=== PATIENT | male | born 1950 | race Caucasian/White ===

== ENCOUNTER 2018-12-04 11:43 | Day surgery (SDC) | payer MEDICARE, OTHER ==
[~2018-12-04] VITALS: Ht 177.8 cm; Wt 87.9 kg
[~2018-12-04 11:43] MED LIST: ASCO500C2 PO; ASPI-496 PO; CHOL200074 PO; LORA10TA75 PO; LUTE20CA2 PO; NIAC500T10 PO; OMEG1CAP24 PO; PRAV20TA2 PO; SELE200T10 PO; UBID100C41 PO
[2018-12-04] MEDS ORDERED: LACTATED RINGERS 1,000 ML IV SCH (11:52)
[2018-12-04] MEDS ORDERED: ACETAMINOPHEN 500 MG TABLET PO ONE (12:00)
[2018-12-04] MEDS ORDERED: ONDANSETRON ODT 8 MG PO ONE (12:00)
[2018-12-04] MEDS ORDERED: GABAPENTIN 300 MG CAPSULE PO ONE (12:00)
[2018-12-04 12:10] VITALS: BP 149/82
[2018-12-04] MEDS ORDERED: BUPIVACAINE/PF 0.25% ONE (13:44)
[2018-12-04] MEDS ORDERED: FENTANYL PF 250 MCG/5ML ONE (14:04)
[2018-12-04] MEDS ORDERED: MIDAZOLAM 1 MG/ML, 2ML ONE (14:04)
[2018-12-04] MEDS ORDERED: GLYCOPYRROLATE 0.2MG/1ML, 5ML ONE (14:24)
[2018-12-04] MEDS ORDERED: METOPROLOL 1 MG/ML, 5ML IV PRN (15:00)
[2018-12-04] MEDS ORDERED: PROMETHAZINE 25 MG/ML, 1ML IV PRN (15:00)
[2018-12-04] MEDS ORDERED: DIAZEPAM 5 MG/ML, 2ML IVPush PRN (15:00)
[2018-12-04] MEDS ORDERED: HYDROmorphone 2 MG/ML, 1ML IVPush PRN (15:00)
[2018-12-04] MEDS ORDERED: ALBUTEROL/IPRATROPIUM 2.5MG/0.5MG, 3 ML NPPB PRN (15:00)
[2018-12-04] MEDS ORDERED: OXYcodone 5 MG/5 ML ORAL.SOL UDC PO PRN (15:00)
[2018-12-04] MEDS ORDERED: hydrALAzine 20 MG/ML, 1ML IV PRN (15:00)
[2018-12-04] MEDS ORDERED: ONDANSETRON 2MG/ML, 2ML IV PRN (15:00)
[2018-12-04] MEDS ORDERED: MIDAZOLAM 1 MG/ML, 2ML IV PRN (15:00)
[2018-12-04] MEDS ORDERED: FENTANYL PF 100 MCG/2ML IV PRN (15:00)
[2018-12-04] MEDS ORDERED: NEOSPORIN OINT, 15GM ONE (15:23)
[2018-12-04] MEDS ORDERED: KETOROLAC 30 MG/1 ML ONE (15:26)
[2018-12-04] MEDS ORDERED: CEFAZOLIN 1,000 MG ONE (15:26)
[2018-12-04] MEDS ORDERED: PROPOFOL 10 MG/ML, 20ML ONE (15:26)
[2018-12-04] MEDS ORDERED: DEXAMETHASONE 4 MG/ML, 1ML ONE (15:26)
[2018-12-04] MEDS ORDERED: OXYcodone 5 MG/5 ML ORAL.SOL UDC ONE (15:46)
[2018-12-04] MEDS ORDERED: FENTANYL PF 100 MCG/2ML ONE (15:46)
== END 2018-12-04 18:15 | disposition home or self-care (01) ==
LOC: OUT 11:43
PROVIDERS: ATTEND Urology
DX: N43.42 Spermatocele of epididymis, multiple (principal); N43.3 Hydrocele, unspecified; Z72.89 Other problems related to lifestyle; E78.00 Pure hypercholesterolemia, unspecified; Z98.890 Other specified postprocedural states
CPT/HCPCS: 54840; 88304; J0690; J1100; J1885; J2250; J2704; J3010; J3490; J7120; Q0162

== ENCOUNTER → 2018-12-21 | Outpatient (CLI) | payer MEDICARE, OTHER ==
[~2018-12-21] MED LIST changes: +REGADENOSON 0.4 MG/5 ML SYRINGE ONE
[2018-12-21 15:59] LABS: BASOPHILS # (AUTO) 0.04 x10^3/uL (0-0.1); BASOPHILS % (AUTO) 1 % (0-1); EOSINOPHILS % (AUTO) 2 % (1-7); LYMPHOCYTES # (AUTO) 2.02 x10^3/uL (1-3.4); LYMPHOCYTES % (AUTO) 31 % (22-44); MD NO; MEAN CORPUSCULAR HEMOGLOBIN 30.7 pg (27.5-34.5); MEAN CORPUSCULAR HGB CONC 33.3 g/dL (33.2-36.2); MEAN CORPUSCULAR VOLUME 92.1 fL (81-97); MEAN PLATELET VOLUME 7.5 fL (7.4-10.4); MONOCYTES # (AUTO) 0.45 x10^3/uL (0.2-0.8); MONOCYTES % (AUTO) 7 % (2-9); NEUTROPHILS # (AUTO) 4.01 x10^3/uL (1.8-6.8); NEUTROPHILS % (AUTO) 61 % (42-75); PLATELET COUNT 275 x10^3/uL (130-400); RED BLOOD COUNT 4.94 x10^6/uL (4.38-5.82); RED CELL DISTRIBUTION WIDTH 13.7 % (9.4-14.8)
[2018-12-21 16:10] LABS: ALBUMIN 3.6 g/dL (3.4-5.0); ANION GAP 7 mmol/L (5-15); CALCIUM 8.5 mg/dL (8.5-10.1); CHLORIDE 107 mmol/L (98-107)
[2018-12-21 16:38] LABS: ALANINE AMINOTRANSFERASE 24 U/L (12-78); ALKALINE PHOSPHATASE 79 U/L (45-117); BILIRUBIN,TOTAL 0.9 mg/dL (0.2-1.0); CHOL/HDL RATIO 3.3; CHOLESTEROL, TOTAL 208 mg/dL (140-239); CREATININE 1.02 mg/dL (0.7-1.3); HDL CHOL % 31 % (26-37); HDL CHOLESTEROL (DIRECT) 64 mg/dL (40-60); LDL CHOLESTEROL,CALCULATED 124 mg/dL (54-169); LDL/HDL RATIO 1.9 (0.5-3.0); T4 (THYROXINE) 10.4 mcg/dL (4.5-12.1); TOTAL PROTEIN 7.2 g/dL (6.4-8.2); TRIGLYCERIDES 101 mg/dL (50-200); VLDL CHOLESTEROL 20 mg/dL (0-25)
== END | disposition home or self-care (01) ==
LOC: CFH 12:04
PROVIDERS: ATTEND Internal Medicine Cardiovascular Disease
DX: I34.0 Nonrheumatic mitral (valve) insufficiency (principal); I21.19 ST elevation (STEMI) myocardial infarction involving other coronary artery of inferior wall; I51.7 Cardiomegaly; E78.5 Hyperlipidemia, unspecified; Z87.891 Personal history of nicotine dependence
CPT/HCPCS: 36415; 78452; 80053; 80061; 84436; 84443; 84481; 85025; 93017; 93306; A9502; J2785

== ENCOUNTER 2019-04-05 13:59 | Outpatient (CLI) | payer MEDICARE, OTHER ==
[~2019-04-05 13:59] MED LIST changes: -REGADENOSON 0.4 MG/5 ML SYRINGE ONE
== END 2019-04-05 23:59 | disposition home or self-care (01) ==
LOC: CFH 13:59
PROVIDERS: ATTEND Internal Medicine Cardiovascular Disease
DX: I08.1 Rheumatic disorders of both mitral and tricuspid valves (principal); I48.0 Paroxysmal atrial fibrillation; Z72.0 Tobacco use
CPT/HCPCS: 93306

== ENCOUNTER 2019-05-10 09:01 | Outpatient (CLI) | payer MEDICARE, OTHER | END 2019-05-10 23:59 | disposition home or self-care (01) | LOC: CFH 09:01 | PROVIDERS: ATTEND Internal Medicine Cardiovascular Disease | DX: I25.10 Atherosclerotic heart disease of native coronary artery without angina pectoris (principal); E78.00 Pure hypercholesterolemia, unspecified | CPT/HCPCS: 75571 ==

== ENCOUNTER 2019-11-22 13:13 | Inpatient (IN) | payer MEDICARE, OTHER ==
[~2019-11-22] VITALS: Ht 177.8 cm; Wt 90.9 kg
[~2019-11-22 13:13] MED LIST changes: +NIAC-1 PO; -NIAC500T10 PO
[2019-11-22] MEDS ORDERED: SODIUM CHLORIDE FLUSH 10ML SYR IVF ONE (13:30)
--- NOTE | 2019-11-22 13:35 | NUR ---
PT C/O TIGHT CP STARTING 0900 THIS AM, HX AFIB. PT STATES PCP DX DE AFTER US OF HEART, DE OF UNKNOWN TIME. CONNECTED TO MONITORING. CALL LIGHT IN REACH. AT BEDSIDE.
[2019-11-22 14:03] LABS: BASOPHILS # (AUTO) 0.03 x10^3/uL (0-0.1); BASOPHILS % (AUTO) 0 % (0-1); EOSINOPHILS # (AUTO) 0.13 x10^3/uL (0-0.4); EOSINOPHILS % (AUTO) 2 % (1-7); LYMPHOCYTES # (AUTO) 2.22 x10^3/uL (1-3.4); LYMPHOCYTES % (AUTO) 25 % (22-44); MD NO; MEAN CORPUSCULAR HEMOGLOBIN 30.2 pg (27.5-34.5); MEAN CORPUSCULAR HGB CONC 33.1 g/dL (33.2-36.2); MEAN CORPUSCULAR VOLUME 91.1 fL (81-97); MEAN PLATELET VOLUME 7.3 fL (7.4-10.4); MONOCYTES # (AUTO) 0.82 x10^3/uL (0.2-0.8); MONOCYTES % (AUTO) 9 % (2-9); NEUTROPHILS # (AUTO) 5.72 x10^3/uL (1.8-6.8); NEUTROPHILS % (AUTO) 64 % (42-75); PLATELET COUNT 240 x10^3/uL (130-400); RED BLOOD COUNT 5.05 x10^6/uL (4.38-5.82)
[2019-11-22 14:09] LABS: ALBUMIN 3.6 g/dL (3.4-5.0); ANION GAP 7 mmol/L (5-15); CALCIUM 8.8 mg/dL (8.5-10.1); CHLORIDE 109 mmol/L (98-107)
[2019-11-22 14:15] LABS: ALANINE AMINOTRANSFERASE 17 U/L (12-78); ALKALINE PHOSPHATASE 84 U/L (45-117); BILIRUBIN,TOTAL 1.1 mg/dL (0.2-1.0); CREATININE 1.13 mg/dL (0.7-1.3); TOTAL PROTEIN 7.6 g/dL (6.4-8.2); TROPONIN I < 0.015 ng/mL (0.000-0.045)
[2019-11-22] MEDS ORDERED: DRON400T PO (14:24)
[2019-11-22] MEDS ORDERED: APIX5TAB PO (14:24)
[2019-11-22] MEDS ORDERED: NITROGLYCERIN OINT 2%, 1GM TP ONE ×2 (14:28→14:30)
[2019-11-22] MEDS ORDERED: ASPIRIN 81 MG TABLET CHEW ONE (14:28)
[2019-11-22] MEDS ORDERED: ASPIRIN 81 MG TABLET CHEW PO ONE (14:30)
--- NOTE | 2019-11-22 14:34 | NUR ---
MEDS ADMIN PER MAR. TECH AT BEDSIDE FOR PIV PLACEMENT.
[2019-11-22] MEDS ORDERED: ACETAMINOPHEN 325 MG TABLET PO PRN ×2 (15:00→21:00)
[2019-11-22] MEDS ORDERED: HEPARIN 5,000 UNITS/ML, 1ML SQ SCH (15:00)
[2019-11-22 15:38] LABS: INTERNATIONAL NORMALIZED RATIO 1.03 (0.93-1.1); PROTHROMBIN TIME 10.9 Seconds (9.6-11.5)
[2019-11-22] MEDS ORDERED: HEPARIN 5,000 UNITS/ML, 1ML ONE (15:40)
--- NOTE | 2019-11-22 15:49 | NUR ---
REPORT GIVEN TO NORMA AGEE.
[2019-11-22 19:15] VITALS: BP 151/86
[2019-11-22] MEDS ORDERED: DRONEDARONE 400MG TABLET ONE (20:39)
[2019-11-22] MEDS: HEPARIN 5,000 UNITS/ML, 1ML SQ SCH (20:44)
[2019-11-22] MEDS: DRONEDARONE 400MG TABLET PO SCH (20:44)
[2019-11-22] MEDS ORDERED: PRAVASTATIN 20 MG TABLET PO SCH ×2 (21:00)
[2019-11-23 01:28] VITALS: BP 138/71
[2019-11-23] MEDS: HEPARIN 5,000 UNITS/ML, 1ML SQ SCH (05:32)
[2019-11-23] MEDS ORDERED: ASPIRIN 81 MG TABLET EC PO SCH ×2 (06:00)
[2019-11-23 08:34] VITALS: BP 139/83
[2019-11-23 08:38] LABS: ANION GAP 4 mmol/L (5-15); CALCIUM 8.9 mg/dL (8.5-10.1); CHLORIDE 110 mmol/L (98-107); CREATININE 0.98 mg/dL (0.7-1.3); TROPONIN I < 0.015 ng/mL (0.000-0.045)
[2019-11-23] MEDS ORDERED: DRONEDARONE 400MG TABLET ONE (08:56)
[2019-11-23] MEDS ORDERED: LORATADINE 10 MG TABLET PO SCH ×2 (09:00)
[2019-11-23] MEDS: DRONEDARONE 400MG TABLET PO SCH (09:16)
[2019-11-23] MEDS ORDERED: APIXABAN 5 MG TABLET PO ONE (13:00)
[2019-11-23] MEDS ORDERED: APIXABAN 5 MG TABLET PO SCH (22:30)
== END 2019-11-23 12:45 | disposition home or self-care (01) | DRG 311 ==
LOC: ED 14:58 → 5SO 14:59 → UNDODISIN 16:00 → DCLOUNGE 11-23 12:29
PROVIDERS: ADMIT Internal Medicine Infectious Disease; ATTEND Internal Medicine
DX: I20.8 Other forms of angina pectoris (principal); I48.0 Paroxysmal atrial fibrillation; E78.5 Hyperlipidemia, unspecified; I25.2 Old myocardial infarction; Z79.01 Long term (current) use of anticoagulants; Z82.49 Family history of ischemic heart disease and other diseases of the circulatory system; Z87.891 Personal history of nicotine dependence
CPT/HCPCS: 36415; 71045; 80048; 80053; 84484; 85025; 85610; 93005; 93017; 99285; G0378; J1644